=== PATIENT | female | born 1970 | race Caucasian/White ===

== ENCOUNTER 2018-04-17 01:19 | Emergency (ER) | payer BC, OTHER ==
[2018-04-17 01:52] VITALS: BP 135/82
[2018-04-17] MEDS ORDERED: METHOCARBAMOL 500 MG TABLET PO ONE (02:25)
[2018-04-17] MEDS ORDERED: LIDOCAINE 5% (700 MG) TRANSDERMAL ADH..PATCH TP ONE (02:25)
--- NOTE | 2018-04-17 02:27 | ER Document Report ---
HPI - HPI Time Seen by Provider: 04/17/18 02:13 Pain Level: 5 Context: Patient is a 47-year-old female who presents emergency department with a chief complaint of right shoulder pain and generalized body aches. She is having numbness in her arm and hand and muscle cramps in her right leg and foot. She states that her symptoms started this morning, But has had chronic problems with her shoulder and leg in the past. She states that she was unable to move her arm, but denies any weakness. She denies any fever, chest pain, nausea, or vomiting. She denies any trauma or injury. She does have chronic pain issues and is being seen by pain management. She took some Flexeril at home, but had no relief. She has been on Flexeril for a while, but she states that it seems like it is not working as well for her. She is not requesting any narcotic pain medicine. - CONSTITUTIONAL Constitutional: DENIES: Fever - NEURO Neurology: DENIES: Headache - CARDIOVASCULAR Cardiovascular: DENIES: Chest pain - RESPIRATORY Respiratory: DENIES: Trouble Breathing, Coughing - GASTROINTESTINAL Gastrointestinal: DENIES: Abdominal Pain, Nausea, Diarrhea - REPRODUCTIVE Reproductive: DENIES: : - MUSCULOSKELETAL Musculoskeletal: REPORTS: Extremity pain, Neck Pain - DERM Skin Color: Normal Skin Problems: None Past Medical History - General Information source: Patient - Social History Smoking Status: Current Every Day Smoker Family History: Reviewed & Not Pertinent - Past Medical History Cardiac Medical History: Denies: Hx Coronary Artery Disease Pulmonary Medical History: Neurological Medical History: GI Medical History: Musculoskeletal Medical History: Infectious Medical History: Past Surgical History: Vertical Provider Document - INFECTION CONTROL TRAVEL OUTSIDE OF THE [place] IN LAST 30 DAYS: No - HEENT HEENT: Atraumatic, Normocephalic - NECK Neck: Normal Inspection - RESPIRATORY Respiratory: Breath Sounds Normal, No Respiratory Distress - CARDIOVASCULAR Cardiovascular: Regular Rate, Regular Rhythm - BACK Back: Normal Inspection - MUSCULOSKELETAL/EXTREMETIES Musculoskeletal/Extremeties: FROM, Tender - Tenderness noted to right trapezius muscle - NEURO Level of Consciousness: Awake, Alert, Appropriate Motor/Sensory: No Motor Deficit, No Sensory Deficit - DERM Integumentary: Warm, Dry Course - Re-evaluation Re-evalutation: 04/17/18 02:27 Patient's physical exam is most consistent with muscle tension. I suspect her muscle tension is causing her numbness and tingling in her right arm. She does have stiffness noted to the right side of her trapezius muscle. No x-rays are indicated at this time, as she did not have an injury, nor does she have any weakness on physical exam. She will be given Robaxin for home and she will have a lidocaine patch placed to the area. He does have a TENS unit at home and I have advised her to use the TENS unit to help with her muscle spasms. Verbal discharge instructions were given to the patient. They verbalized understanding. They are stable for discharge. - Vital Signs Vital signs: Temp Pulse Resp BP Pulse Ox 98.2 F 81 17 135/82 H 93 04/17/18 01:47 04/17/18 01:47 04/17/18 01:47 04/17/18 01:47 04/17/18 01:47 Discharge - Discharge Clinical Impression: Muscle spasm, Numbness and tingling of right arm Right shoulder pain Qualifiers: Chronicity: acute Qualified Code(s): M25.511 - Pain in right shoulder Condition: Stable Disposition: HOME, SELF-CARE Additional Instructions: You were seen in the emergency department for right shoulder pain, numbness and tingling in your right arm, and muscle cramps in your right leg. Your symptoms are related to muscle tension. You have been prescribed Robaxin, medication that will help relax her muscles. Please take this medication at night. You can use her TENS unit at home to help with muscle tension. Please follow-up with your primary care provider in regards to this visit. If you are unable to move, develop weakness, or have any symptoms that are worrisome to you, please return to the emergency department. Prescriptions: Methocarbamol [Robaxin 500 mg Tablet] 1,000 mg PO QHS #16 tablet Referrals: SHANDA YU MD [Primary Care Provider] - Follow up as needed
== END 2018-04-17 02:52 | disposition home or self-care (01) ==
LOC: ER 01:19
DX: M62.838 Other muscle spasm (principal); R20.0 Anesthesia of skin; R20.2 Paresthesia of skin; M54.2 Cervicalgia; M25.511 Pain in right shoulder; G89.29 Other chronic pain; Z79.899 Other long term (current) drug therapy; F17.200 Nicotine dependence, unspecified, uncomplicated
CPT/HCPCS: 99284

== ENCOUNTER 2018-09-04 16:44 | Emergency (ER) | payer BC, OTHER ==
--- NOTE | 2018-09-04 17:04 | ER Document Report ---
ED Medical Screen (RME) - General Chief Complaint: Dizziness Stated Complaint: BACK PAIN Time Seen by Provider: 09/04/18 16:49 Primary Care Provider: SHANDA YU MD [Primary Care Provider] - Follow up as needed Mode of Arrival: Ambulatory Information source: Patient Notes: Patient presents complaining of headache for the past several days. Patient states that she has dizziness today and developed numbness and tingling to the right upper extremity. Patient states that over the course of the afternoon she started to develop symptoms to the left upper extremity as well. Patient states she did contact her doctor because she has a history of herniated disc in the C3-6 area of her neck. Patient states she is never had paresthesia to bilateral upper extremities with the numbness. Her primary doctor advised her to come here for further evaluation. Patient states that while waiting here in the lobby she starts to develop facial numbness and tingling to her nose and a sensation of feeling like something is on her face. I have greeted and performed a rapid initial assessment of this patient. A comprehensive ED assessment and evaluation of the patient, analysis of test results and completion of the medical decision making process will be conducted by additional ED providers. TRAVEL OUTSIDE OF THE [place] IN LAST 30 DAYS: No - Related Data Allergies/Adverse Reactions: neomycin [Neomycin] Allergy (Severe, Verified 09/04/18 16:45) Eyes get bloody Eggs/Flu shot Allergy (Severe, Uncoded 09/04/18 16:45) Severe N&V, Throat closes Past Medical History - Social History Chew tobacco use (# tins/day): No Frequency of alcohol use: None Drug Abuse: None - Past Medical History Cardiac Medical History: Reports: Hx Hypercholesterolemia, Hx Hypertension Denies: Hx Coronary Artery Disease Pulmonary Medical History: Neurological Medical History: Endocrine Medical History: Reports: Hx Diabetes Mellitus Type 2 Renal/ Medical History: Denies: Hx Peritoneal Dialysis GI Medical History: Reports: Hx Gastroesophageal Reflux Disease Musculoskeltal Medical History: Psychiatric Medical History: Reports: Hx Depression Infectious Medical History: Past Surgical History: Reports: Hx Hysterectomy, Hx Orthopedic Surgery - lt shoulder, Hx Tonsillectomy Physical Exam - Vital signs Vitals: Temp Pulse Resp BP Pulse Ox 98.9 F 99 16 148/88 H 95 09/04/18 16:53 09/04/18 16:53 09/04/18 16:53 09/04/18 16:53 09/04/18 16:53 - Neurological Neuro grossly intact: Yes Cognition: Normal [place] Coma Scale Eye Opening: Spontaneous [place] Coma Scale Verbal: Oriented [place] Coma Scale Motor: Obeys Commands [place] Coma Scale Total: 15 Speech: Normal. No: Dysarthria Cranial nerves: No: Facial palsy Course - Vital Signs Vital signs: Temp Pulse Resp BP Pulse Ox 98.9 F 99 16 148/88 H 100 09/04/18 16:53 09/04/18 16:59 09/04/18 16:59 09/04/18 16:59 09/04/18 16:59 Doctor's Discharge - Discharge Referrals: SHANDA YU MD [Primary Care Provider] - Follow up as needed
--- NOTE | 2018-09-04 17:26 | RADIOLOGY REPORT (SQ) ---
EXAM DESCRIPTION: CHEST 2 VIEWS COMPLETED DATE/TIME: 09/04/2018 5:19 pm REASON FOR STUDY: dizziness COMPARISON: 06/16/2010 EXAM PARAMETERS: NUMBER OF VIEWS: two views TECHNIQUE: Digital Frontal and Lateral radiographic views of the chest acquired. RADIATION DOSE: NA LIMITATIONS: none FINDINGS: LUNGS AND PLEURA: No opacities, masses or pneumothorax. No pleural effusion. MEDIASTINUM AND HILAR STRUCTURES: No masses or contour abnormalities. HEART AND VASCULAR STRUCTURES: Heart normal size. No evidence for failure. BONES: No acute findings. HARDWARE: None in the chest. OTHER: No other significant finding. IMPRESSION: NO ACUTE RADIOGRAPHIC FINDING IN THE CHEST. TECHNICAL DOCUMENTATION: JOB ID: [id number] [employer]- All Rights Reserved Reading location - IP/workstation name: [email or web address]
[2018-09-04 17:37] LABS: ABSOLUTE BASOPHILS # (AUTO) 0.1 10^3/uL (0.0-0.2); ABSOLUTE EOSINOPHILS # (AUTO) 0.3 10^3/uL (0.0-0.6); ABSOLUTE LYMPHOCYTES (AUTO) 3.6 10^3/uL (0.5-4.7); ABSOLUTE MONOCYTES (AUTO) 0.6 10^3/uL (0.1-1.4); ABSOLUTE NEUT (AUTO) 7.1 10^3/uL (1.7-8.2); BASOPHILS % (AUTO) 0.6 % (0-2); EOSINOPHILS % (AUTO) 2.2 % (0-6); HEMATOCRIT 41.2 % (36.0-47.0); HEMOGLOBIN 14.2 g/dL (12.0-15.5); LYMPHOCYTES % (AUTO) 30.9 % (13-45); MEAN CORPUSCULAR HEMOGLOBIN 31.5 pg (27.0-33.4); MEAN CORPUSCULAR HGB CONC 34.5 g/dL (32.0-36.0); MEAN CORPUSCULAR VOLUME 91 fl (80-97); MONOCYTES % (AUTO) 4.9 % (3-13); PLATELET COUNT 251 10^3/uL (150-450); RED BLOOD COUNT 4.51 10^6/uL (3.72-5.28); RED CELL DISTRIBUTION WIDTH 14.8 % (11.5-14.0); SEGMENTED NEUTROPHILS % (AUTO) 61.4 % (42-78); TOTAL CELLS COUNTED % (AUTO) 100 %; WHITE BLOOD COUNT 11.5 10^3/uL (4.0-10.5)
[2018-09-04 17:56] LABS: ALANINE AMINOTRANSFERASE 37 U/L (9-52); ALBUMIN 4.6 g/dL (3.5-5.0); ALKALINE PHOSPHATASE 105 U/L (38-126); ANION GAP 11 (5-19); ASPARTATE AMINO TRANSFERASE 27 U/L (14-36); BILIRUBIN,DIRECT 0.2 mg/dL (0.0-0.4); BILIRUBIN,TOTAL 0.3 mg/dL (0.2-1.3); BLOOD UREA NITROGEN 12 mg/dL (7-20); CALCIUM 9.5 mg/dL (8.4-10.2); CARBON DIOXIDE 27 mmol/L (22-30); CHLORIDE 103 mmol/L (98-107); GLUCOSE 143 mg/dL (75-110); POTASSIUM 3.1 mmol/L (3.6-5.0); SODIUM 141.1 mmol/L (137-145)
--- NOTE | 2018-09-04 17:56 | RADIOLOGY REPORT (SQ) ---
EXAM DESCRIPTION: CT HEAD WITHOUT COMPLETED DATE/TIME: 09/04/2018 5:36 pm REASON FOR STUDY: NICOLAS, facial numbness/paresthesia COMPARISON: None. TECHNIQUE: Axial images acquired through the brain without intravenous contrast. Images reviewed wi th bone, brain and subdural windows. Images stored on PACS. All CT scanners at this facility use dose modulation, iterative reconstruction, and/or weight based d osing when appropriate to reduce radiation dose to as low as reasonably achievable (ALARA). [facility]: Dose Right [facility]: CareDose [facility]: Dose Right [facility]: Teradose 4D [facility]: [employer] RADIATION DOSE: CT Rad equipment meets quality standard of care and radiation dose reduction techniq ues were employed. CTDIvol: 53.2 mGy. DLP: 991 mGy-cm. mGy. LIMITATIONS: None. FINDINGS: VENTRICLES: Normal size and contour. CEREBRUM: No masses. No hemorrhage. No midline shift. No evidence for acute infarction. Normal gra y/white matter differentiation. No areas of low density in the white matter. CEREBELLUM: No masses. No hemorrhage. No alteration of density. No evidence for acute infarction. EXTRAAXIAL SPACES: No fluid collections. No masses. ORBITS AND GLOBE: No intra- or extraconal masses. Normal contour of globe without masses. CALVARIUM: No fracture. PARANASAL SINUSES: No fluid or mucosal thickening. SOFT TISSUES: No mass or hematoma. OTHER: No other significant finding. IMPRESSION: No acute intracranial findings. EVIDENCE OF ACUTE STROKE: NO. COMMENT: Quality ID # [id number]: Final reports with documentation of one or more dose reduction techniques (e.g., Automated exposure control, adjustment of the mA and/or kV according to patient size, use of iterative reconstruction technique) TECHNICAL DOCUMENTATION: JOB ID: [id number] [place]-72 2010 [employer]- All Rights Reserved Reading location - IP/workstation name: [email or web address]
[2018-09-04] MEDS ORDERED: POTASSIUM CHLORIDE 10 MEQ CAPSULE.ER PO ONE (20:12)
[2018-09-04] MEDS ORDERED: METOCLOPRAMIDE HCL INJ/PF 10 MG/2 ML SDV IV ONE (20:55)
[2018-09-04] MEDS ORDERED: KETOROLAC TROMETHAMINE INJ/PF 30 MG/1 ML SDV IV ONE (20:55)
--- NOTE | 2018-09-04 20:59 | ER Document Report ---
ED General - General Chief Complaint: Dizziness Stated Complaint: BACK PAIN Time Seen by Provider: 09/04/18 16:49 Primary Care Provider: SHANDA YU MD [Primary Care Provider] - Follow up as needed Mode of Arrival: Ambulatory Notes: Patient is a 48-year-old female that comes emergency department for chief complaint of headaches and paresthesias. She states that she had almost no sleep throughout the whole weekend and as result has had headaches all weekend, she states she seems to having tension headaches and occasional migraines. She also has chronic back pain and herniated disks at the C3-C6, states that she was feeling tingling than usual in her right arm, especially with position changes, also feeling some in the left. She states that she also got a numbness sensation over her face earlier. She denies chest pain, shortness of palpitations, focal weakness, visual changes, nausea or vomiting. She states she called her doctor and they told her to come in for an evaluation. She states she currently does have a headache which she rates as a 5 out of 10. TRAVEL OUTSIDE OF THE [place] IN LAST 30 DAYS: No - Related Data Allergies/Adverse Reactions: neomycin [Neomycin] Allergy (Severe, Verified 09/04/18 16:45) Eyes get bloody Eggs/Flu shot Allergy (Severe, Uncoded 09/04/18 16:45) Severe N&V, Throat closes Past Medical History - General Information source: Patient - Social History Smoking Status: Current Every Day Smoker Chew tobacco use (# tins/day): No Frequency of alcohol use: None Drug Abuse: None Lives with: Family Family History: Reviewed & Not Pertinent Patient has suicidal ideation: No Patient has homicidal ideation: No - Past Medical History Cardiac Medical History: Reports: Hx Hypercholesterolemia, Hx Hypertension Denies: Hx Coronary Artery Disease Pulmonary Medical History: Neurological Medical History: Endocrine Medical History: Reports: Hx Diabetes Mellitus Type 2 Renal/ Medical History: Denies: Hx Peritoneal Dialysis GI Medical History: Reports: Hx Gastroesophageal Reflux Disease Musculoskeletal Medical History: Psychiatric Medical History: Reports: Hx Depression Infectious Medical History: Past Surgical History: Reports: Hx Hysterectomy, Hx Orthopedic Surgery - lt shoulder, Hx Tonsillectomy Review of Systems - Review of Systems Constitutional: No symptoms reported EENT: No symptoms reported Cardiovascular: No symptoms reported Respiratory: No symptoms reported Gastrointestinal: No symptoms reported Genitourinary: No symptoms reported Female Genitourinary: No symptoms reported Musculoskeletal: See HPI Skin: No symptoms reported Hematologic/Lymphatic: No symptoms reported Neurological/Psychological: See HPI Physical Exam - Vital signs Vitals: Temp Pulse Resp BP Pulse Ox 98.9 F 99 16 148/88 H 95 09/04/18 16:53 09/04/18 16:53 09/04/18 16:53 09/04/18 16:53 09/04/18 16:53 - Notes Notes: GENERAL: Alert, interacts well. No acute distress. HEAD: Normocephalic, atraumatic. EYES: Pupils equal, round, and reactive to light. Extraocular movements intact. ENT: Oral mucosa moist, tongue midline. Oropharynx unremarkable. Airway patent. NECK: Full range of motion. Supple. Trachea midline. LUNGS: Clear to auscultation bilaterally, no wheezes, rales, or rhonchi. No respiratory distress. HEART: Regular rate and rhythm. No murmur ABDOMEN: Soft, non-tender. Non-distended. Bowel sounds present in all 4 quadrants. GENITOURINARY: Deferred EXTREMITIES: Moves all 4 extremities spontaneously. No edema, normal radial and dorsalis pedis pulses bilaterally. No cyanosis. BACK: no cervical, thoracic, lumbar midline tenderness. No saddle anesthesia, normal distal neurovascular exam. Moves all extremities in full range of motion. NEUROLOGICAL: Alert and oriented x3. Normal speech. Cranial nerves II through XII grossly intact. PSYCH: Normal affect, normal mood. SKIN: Warm, dry, normal turgor. No rashes or lesions noted. Course - Re-evaluation Re-evalutation: Patient's neurological exam is normal. She is smiling, well-appearing, talking on the phone when I entered the room. She does report intermittent tingling sensations but also reports that she has had these symptoms for a long time with her cervical pathology. She does not have any new symptoms today. Her headache has been going on longer than usual but she explains this has been lack of sleep. Clinical picture is most consistent with migraine, possibly complex migraine, and paresthesias. Low suspicion of CVA, intracranial hemorrhage based on patient's reported symptoms and her evaluation. CBC unremarkable. Chemistry shows hypokalemia at 3.1, magnesium unremarkable, potassium supplemented. Patient will be treated for her migraine. I did review CAT scan of the head this was normal, chest x-ray unremarkable, EKG and troponin with no acute findings. On reevaluation patient states her headache is completely gone, she is request ing to leave. We discussed treatment at home, after discussion decision was made to treat with dexamethasone to prevent headache rebound and hopefully improve her paresthesias along with her ongoing neck problems. She has excellent follow-up. I discussed return precautions in detail. Patient states understanding and agreement. - Vital Signs Vital signs: Temp Pulse Resp BP Pulse Ox 97.5 F 73 18 128/85 H 95 09/04/18 22:58 09/04/18 22:58 09/04/18 22:58 09/04/18 22:58 09/04/18 22:58 - Laboratory Result Diagrams: 09/04/18 17:10 09/04/18 17:10 Laboratory results interpreted by me: 09/04/18 09/04/18 17:10 17:10 WBC 11.5 H RDW 14.8 H Potassium 3.1 L Glucose 143 H Discharge - Discharge Clinical Impression: Paresthesias, Hypokalemia Headache Qualifiers: Headache type: unspecified Headache chronicity pattern: acute headache Intractability: not intractable Qualified Code(s): R51 - Headache Condition: Stable Disposition: HOME, SELF-CARE Additional Instructions: Your potassium is low, you were given a dose of potassium here, increase potassium in your diet over the next week and have this rechecked. You have been treated with dexamethasone to help with your symptoms, also continue your current daily medications and follow-up with pain management. Return if you worsen including worsening headache, developing numbness, weakness, fever/chills, vomiting, or any other concerning or worsening symptoms. Referrals: SHANDA YU MD [Primary Care Provider] - Follow up as needed
[2018-09-04] MEDS ORDERED: DEXAMETHASONE SOD PHOS INJ 10 MG/1 ML VIAL IV ONE (21:52)
[2018-09-04 23:00] VITALS: BP 128/85
--- NOTE | 2018-09-04 23:14 | EKG REPORT ---
SEVERITY:- NORMAL ECG - SINUS RHYTHM : Confirmed by: Harley Ang 04-Sep-2018 23:13:25
== END 2018-09-04 23:00 | disposition home or self-care (01) ==
LOC: ER 16:44
DX: E87.6 Hypokalemia (principal); R20.2 Paresthesia of skin; M54.9 Dorsalgia, unspecified; R51 Headache; R42 Dizziness and giddiness; E78.00 Pure hypercholesterolemia, unspecified; I10 Essential (primary) hypertension; E11.9 Type 2 diabetes mellitus without complications; F17.200 Nicotine dependence, unspecified, uncomplicated; Z91.012 Allergy to eggs; Z88.3 Allergy status to other anti-infective agents; Z90.710 Acquired absence of both cervix and uterus
CPT/HCPCS: 93005; 99284; 96374; 96375; 36415; 83735; 85025; 80053; 84484; 71046; 70450; 93010; J1885; J2765; J1100

== ENCOUNTER → 2019-01-23 | Outpatient (CLI) | payer BC, OTHER ==
--- NOTE | 2019-01-23 15:23 | WOMENS IMAGING REPORT ---
EXAM DESCRIPTION: 3D SCREENING MAMMO BILAT COMPLETED DATE/TIME: 01/23/2019 2:35 pm REASON FOR STUDY: ROUTINE SCREENING Z12.31 Z12.31 ENCNTR SCREEN MAMMOGRAM FOR MALIGNANT NEOPLASM OF [place]RI[place] COMPARISON: 2011, 2013 EXAM PARAMETERS: Views: Standard craniocaudal and mediolateral oblique views of each breast recorded using digital acquisition and breast tomosynthesis. Read with the assistance of CAD. .[facility] - [employer] Version 9.2 LIMITATIONS: None. FINDINGS: No suspicious masses, suspicious calcifications or architectural distortion. No areas of c oncern. IMPRESSION: NEGATIVE MAMMOGRAM. BIRADS 1. BREAST DENSITY: b. There are scattered areas of fibroglandular density. BIRAD: ASSESSMENT: 1 NEGATIVE RECOMMENDATION: ROUTINE SCREENING COMMENT: The patient has been notified of the results by letter per MQSA requirements. Additional no tification policies are in place for contacting patient with suspicious or incomplete findings. Quality ID #[id number]: The [employer] recommends an annual screening mammogram for women aged 40 years or over. This facility utilizes a reminder system to ensure that all patients receive reminder letters, and/or direct phone calls for appointments. This includes reminders for routine scr eening mammograms, diagnostic mammograms, or other Breast Imaging Interventions when appropriate. Th is patient will be placed in the appropriate reminder system. TECHNICAL DOCUMENTATION: FINDING NUMBER: (1) ASSESSMENT: (1) JOB ID: [id number] [employer]- All Rights Reserved Reading location - IP/workstation name: [email or web address]
== END ==
LOC: WI 14:09
PROVIDERS: ATTEND Physician Assistant
DX: Z12.31 Encounter for screening mammogram for malignant neoplasm of breast (principal)
CPT/HCPCS: 77063; 77067

== ENCOUNTER 2019-10-01 07:50 | Day surgery (SDC) | payer BC, OTHER ==
--- NOTE | 2019-09-27 10:38 | RADIOLOGY REPORT (SQ) ---
EXAM DESCRIPTION: CHEST PA/LATERAL IMAGES COMPLETED DATE/TIME: 09/27/2019 10:16 am REASON FOR STUDY: PRE-OP COMPARISON: 09/04/2018 EXAM PARAMETERS: NUMBER OF VIEWS: two views TECHNIQUE: Digital Frontal and Lateral radiographic views of the chest acquired. RADIATION DOSE: NA LIMITATIONS: none FINDINGS: LUNGS AND PLEURA: No opacities, masses or pneumothorax. No pleural effusion. MEDIASTINUM AND HILAR STRUCTURES: No masses or contour abnormalities. HEART AND VASCULAR STRUCTURES: Heart normal size. No evidence for failure. BONES: No acute findings. HARDWARE: None in the chest. OTHER: No other significant finding. IMPRESSION: NO SIGNIFICANT RADIOGRAPHIC FINDING IN THE CHEST. TECHNICAL DOCUMENTATION: JOB ID: [id number] 2010 [employer]- All Rights Reserved Reading location - IP/workstation name: [email or web address]
[2019-09-27 10:44] LABS: ABSOLUTE BASOPHILS # (AUTO) 0.1 10^3/uL (0.0-0.2); ABSOLUTE EOSINOPHILS # (AUTO) 0.1 10^3/uL (0.0-0.6); ABSOLUTE LYMPHOCYTES (AUTO) 2.6 10^3/uL (0.5-4.7); ABSOLUTE MONOCYTES (AUTO) 0.4 10^3/uL (0.1-1.4); ABSOLUTE NEUT (AUTO) 5.2 10^3/uL (1.7-8.2); BASOPHILS % (AUTO) 0.8 % (0-2); EOSINOPHILS % (AUTO) 1.7 % (0-6); HEMATOCRIT 41.7 % (36.0-47.0); HEMOGLOBIN 14.5 g/dL (12.0-15.5); LYMPHOCYTES % (AUTO) 30.9 % (13-45); MEAN CORPUSCULAR HEMOGLOBIN 31.8 pg (27.0-33.4); MEAN CORPUSCULAR HGB CONC 34.8 g/dL (32.0-36.0); MEAN CORPUSCULAR VOLUME 91 fl (80-97); MONOCYTES % (AUTO) 4.4 % (3-13); PLATELET COUNT 204 10^3/uL (150-450); RED BLOOD COUNT 4.57 10^6/uL (3.72-5.28); SEGMENTED NEUTROPHILS % (AUTO) 62.2 % (42-78); TOTAL CELLS COUNTED % (AUTO) 100 %; WHITE BLOOD COUNT 8.3 10^3/uL (4.0-10.5)
[2019-09-27 11:15] LABS: ANION GAP 11 (5-19); BLOOD UREA NITROGEN 13 mg/dL (7-20); CARBON DIOXIDE 30 mmol/L (22-30); CHLORIDE 98 mmol/L (98-107); GLUCOSE 223 mg/dL (75-110)
--- NOTE | 2019-09-27 12:57 | EKG REPORT ---
SEVERITY:- BORDERLINE ECG - SINUS RHYTHM BORDERLINE T ABNORMALITIES, ANT-LAT LEADS : Confirmed by: César Gonzalez MD 27-Sep-2019 12:57:34
[~2019-10-01 07:50] MED LIST: CEFAZOLIN 2 GM/D5W RTU 2 GM/50 ML RTUPB IV ONE; CEFAZOLIN 2 GM/D5W RTU 2 GM/50 ML RTUPB IV PRN; FENTANYL CITRATE INJ/PF 100 MCG/2 ML AMPUL ONE; LACTATED RINGERS 1000 ML IV PRN; LIDOCAINE 0.5% INJ-PF (5 MG/ML) 50 ML SDV SUBCUT PRN; MIDAZOLAM 2 MG/2 ML INJ ONE; ONDANSETRON HCL INJ/PF 4 MG/2 ML SDV ONE; PROPOFOL INJ 200 MG/20 ML VIAL IV ONE
[2019-10-01] MEDS ORDERED: LIDOCAINE 1% INJ-PF (10 MG/ML) 30 ML SDV ONE (09:25)
[2019-10-01] MEDS ORDERED: ONDANSETRON HCL INJ/PF 4 MG/2 ML SDV IV PRN ×2 (10:21→10:40)
[2019-10-01] MEDS ORDERED: HYDROCODONE/ACETAMINOPHEN 5-325 MG TABLET PO PRN (10:21)
--- NOTE | 2019-10-01 10:22 | Discharge Summary ---
Discharge Summary (SDC) - Discharge Final Diagnosis: Right de Quervain's tenosynovitis Date of Surgery: 10/01/19 Discharge Date: 10/01/19 Condition: Good Treatment or Instructions: Schedule Follow Up w/ Dr. Austen Corbin @ [facility] for Surgery to be seen in 10-14 days or as scheduled [place]: [place]: [place]: Ice and elevate Keep splint clean/dry/intact, do not remove. If your fingers become numb please unwrap the Martin wrap but leave the splint in place, if the sensation does not return within 30 minutes please return to the emergency department. May begin finger range of motion attempting to make full fist. Please use ibuprofen (Motrin or Advil) 600-800 mg every 8 hours as needed for pain or fever DO NOT TAKE w/ TORADOL may use once TORADOL complete. You may also use acetaminophen (Tylenol) 1000 mg every 4-6 hours as needed for pain or fever. Please be aware that many medications contain acetaminophen, do not exceed a total of 1000 mg of acetaminophen every 6 hours. If ibuprofen and acetaminophen are not sufficient for your pain you may take the Percocet/[place]. Please be aware that the Percocet/[place] does contain Tylenol. Stool softener of choice when on pain medication. USE OF [id number] IBUPROFEN: Ibuprofen (Advil, Nuprin, Medipren, Motrin IB) is a medication for fever and pain control. In addition, it has anti- inflammatory effects which may be beneficial, especially in the treatment of injuries. It's best to take ibuprofen with food. Persons with ulcer disease or allergy to aspirin should notify their physician of this before taking ibuprofen. Ibuprofen can be given every four to six hours, for a total of four doses daily. Age Pain or fever dose Antiinflammatory dose 6-8 yr 200 mg (1 tab) 200 mg (1 tab) 9-11 yr 200 mg (1 tab) 200-400 mg (1-2 tab) 11-14 yr 200-400 mg (1-2 tab) 400 mg (2 tab) 15-adult 400 mg (2 tab) 600 mg (3 tab) ORAL NARCOTIC MEDICATION: You have been given a prescription for pain control. This medication is a narcotic. It's best taken with food, as nausea can result if taken on an empty stomach. Don't operate machinery or drive within six hours of taking this medication. Do not combine this medicine with alcohol, or with any medication which can cause sedation (such as cold tablets or sleeping pills) unless you get permission from the physician. Narcotics tend to cause constipation. If possible, drink plenty of fluids and eat a diet high in fiber and fruits. Please be aware that prescription narcotics also have the potential for abuse. People become addicted to these medications because of the general sense of wellbeing that they induce. This feeling along with a significant reduction in tension, anxiety, and aggression provides a stimulating seductive quality to these drugs. Once your pain is under control, we encourage you to discard your unused narcotics. Prescriptions: Hydrocodone/Acetaminophen [[place] 5-325 mg Tablet] 1 tab PO Q6 PRN #15 tablet PRN Reason: Referrals: TRACEY ORO PA-C [Primary Care Provider] - Discharge Diet: As Tolerated Respiratory Treatments at Home: Deep Breathing/Coughing Discharge Activity: No Driving, No Lifting Over 10 Pounds, No Lifting/Push/Pulling Report the Following to Your Physician Immediately: Fever over 101 Degrees, Unusual Bleeding, Redness, Swelling, Warmth, Increased Soreness
--- NOTE | 2019-10-01 10:23 | Operative Report ---
Operative Report DATE OF SURGERY: 10/01/19 PREOPERATIVE DIAGNOSIS: Right de Quervain's tenosynovitis POSTOPERATIVE DIAGNOSIS: Same OPERATION: Right fourth dorsal compartment release with partial tenosynovectomy SURGEON: SARI GARCIA ANESTHESIA: LMAC COMPLICATIONS: None ESTIMATED BLOOD LOSS: Minimal PROCEDURE: Indication for above procedure: 49-year-old female with longstanding history of right wrist discomfort. Patient has findings of de Quervain's tenosynovitis attempted conservative measures including injection, bracing without resolution of her symptoms at that point decision was made to proceed with operative intervention. Risk and benefits were explained to the patient she verbalized understanding consented for surgical procedure. Procedure In Detail: Patient was seen and evaluated in the preoperative holding area. The RIGHT upper extremity was initialized and marked. Patient received 2g of Ancef IV for bacterial prophylaxis. Patient was taken back to the operative room where transferred to the operative table and placed under MAC anesthesia. Once they were adequately anesthetized and a nonsterile tourniquet was placed on the upper extremity. A surgical team debriefing was performed ensuring all instrumentation was available, the surgical procedure was discussed with possible concerns reviewed. The upper extremity was prepped with chlorhexidine and alcohol and draped in a sterile fashion. A timeout was done identifying correct patient, procedure and extremity everyone in attendance agree with this and verbalized no concerns. A total of 7 mL of 1% lidocaine plain was injected. The extremity was exsanguinated the tourniquet was inflated to 250 mmHg. A longitudinal skin incision was centered over the first dorsal compartment at the level of the radial styloid. Meticulous blunt dissection was done through the soft tissues the superficial branch of the radial nerve was identified and retracted with the skin. There is a small vein overlying the first dorsal compartment which was carefully retracted but not disrupted. Any bleeding peripheral vasculature was coagulated with bipolar cautery. I then identified the first dorsal compartment. The first dorsal compartment was incised along its dorsal third to avoid postoperative volar subluxation. Within the first dorsal compartment there was moderate tenosynovitis and thus a partial tenosynovectomy was performed. The APL and EPB tendons were identified. There was mp evidence of a sub-compartment of the EDB. Was was 4 tendon slips of the APL that were released as well. I ensured complete release the first dorsal compartment distally and proximally. The wrist was then placed through range of motion to ensure no subluxation of the first dorsal compartment tendons. The wound was then irrigated with normal saline. And the tourniquet was deflated. Any remaining peripheral vasculature was coagulated with bipolar cautery. I then proceeded with closure utilizing a running subcuticular 4-0 Monocryl suture which was reinforced with Exofin and Steri-Strips. Thumb spica splint was placed. Sponge counts, instrument counts, needle counts counts were correct. Patient was then awoken from anesthesia. Transferred from the operating room table to the operating room stretcher. There was no intraoperative complications patient tolerated procedure well stable to PACU. Postoperative plan: Patient will follow-up in 2 weeks for wound check.
[2019-10-01] MEDS ORDERED: PROPOFOL INJ 200 MG/20 ML VIAL IV ONE (10:31)
[2019-10-01] MEDS: FENTANYL CITRATE INJ/PF 100 MCG/2 ML AMPUL ONE ×2 (10:32→10:40)
[2019-10-01] MEDS ORDERED: DIPHENHYDRAMINE HCL 50 MG/ML VIAL IV PRN (10:40)
[2019-10-01] MEDS ORDERED: PROMETHAZINE HCL INJ 25 MG/1 ML VIAL IV PRN ×2 (10:40)
[2019-10-01] MEDS ORDERED: FENTANYL CITRATE INJ/PF 100 MCG/2 ML AMPUL IV PRN ×3 (10:40)
[2019-10-01] MEDS ORDERED: MEPERIDINE HCL/PF INJ 25 MG/1 ML DISP.SYRIN IV PRN (10:40)
[2019-10-01] MEDS ORDERED: MORPHINE SULFATE 10 MG/ML INJ IV PRN (10:40)
[2019-10-01] MEDS ORDERED: OXYCODONE-ACETAMINOPHEN 5-325 MG TABLET PO PRN ×2 (10:40)
[2019-10-01] MEDS ORDERED: HYDROCODONE/ACETAMINOPHEN 5-325 MG TABLET ONE (11:10)
[2019-10-01 12:50] VITALS: BP 132/85
== END 2019-10-01 12:05 | disposition home or self-care (01) ==
LOC: OROUT 07:50
PROVIDERS: ATTEND Orthopaedic Surgery
DX: M65.4 Radial styloid tenosynovitis [de Quervain] (principal); J44.9 Chronic obstructive pulmonary disease, unspecified; E78.5 Hyperlipidemia, unspecified; I10 Essential (primary) hypertension; F17.210 Nicotine dependence, cigarettes, uncomplicated; E11.9 Type 2 diabetes mellitus without complications; Z79.84 Long term (current) use of oral hypoglycemic drugs; Z79.4 Long term (current) use of insulin; Z79.899 Other long term (current) drug therapy; Z03.818 Encounter for observation for suspected exposure to other biological agents ruled out
CPT/HCPCS: 93005; 36415; 85025; 87635; 80048; 71046; 93010; 25000; J2250; J3010; J3490; J2405; J2704; J0690; C9803